=== PATIENT | female | born 1950 | race Asian ===

== ENCOUNTER 2017-10-19 05:48 | Day surgery (SDC) | payer MEDICARE, OTHER ==
[~2017-10-19] VITALS: Ht 154.9 cm; Wt 94.5 kg
[~2017-10-19 05:48] MED LIST: ALEN70TA48 PO; APIX5TAB PO; ASCO500 PO; ATOR20TA86 PO; CARV6 PO; CETI-290 PO; DICL2100G TP; DICL4100G TP; FLUO2515O TP; METF500T6 PO; MV W1TAB PO; NITR.4 SL; PREG100C PO; PREG50 PO; RINGERS SOLUTION,LACTATED 1,000 ML IV ONE; TRIA1KIT13 TP; UMEC1DIS; UMEC1DIS BU; VALS160T2 PO; VITA1CAP PO; VITAD1000 PO; [UNRECOGNIZED DRUG - CODE] TP
[2017-10-19] MEDS ORDERED: MIDAZOLAM HCL 2 MG/2 ML VIAL IVP ONE (05:49)
[2017-10-19] MEDS ORDERED: FentaNYL CITRATE-PF 100 MCG/2 ML VIAL IVP ONE (05:49)
[2017-10-19] MEDS ORDERED: PROPOFOL 1% 20 ML VIAL IVP ONE (05:49)
[2017-10-19] MEDS ORDERED: RINGERS SOLUTION,LACTATED 1,000 ML IV ONE (06:00)
[2017-10-19 06:33] LABS: PROTHROMBIN TIME 10.6 SEC (9.4-11.6)
[2017-10-19] MEDS ORDERED: LIDOCAINE HCL/PF 1% 30 ML VIAL ONE (06:33)
[2017-10-19] MEDS ORDERED: BUPIVACAINE HCL/PF 0.5% 30 ML VIAL ONE (06:33)
[2017-10-19] MEDS ORDERED: POVIDONE-IODINE 10% 15 ML SOLUTION UD ONE (07:12)
[2017-10-19] MEDS ORDERED: GELATIN SPONGE,ABSORBABLE 50 MM TP ONE (07:13)
[2017-10-19] MEDS ORDERED: THROMBIN, BOVINE 20000 UNITS/VIAL POWDER TP ONE (07:13)
[2017-10-19] MEDS ORDERED: RINGERS SOLUTION,LACTATED 500 ML IV ONE (07:56)
[2017-10-19] MEDS ORDERED: TraMADol HCL 50 MG TABLET PO PRN (08:00)
[2017-10-19] MEDS ORDERED: MEPERIDINE HCL/PF 25 MG/0.5 ML AMP IVP PRN (08:30)
[2017-10-19] MEDS ORDERED: HYDROmorphone 2 MG/ML SYRINGE IVP PRN (08:30)
[2017-10-19] MEDS ORDERED: OXYGEN THERAPY IH SCH (08:30)
[2017-10-19] MEDS ORDERED: FentaNYL CITRATE-PF 100 MCG/2 ML VIAL IVP PRN (08:30)
[2017-10-19 08:52] LABS: BASOPHILS % (AUTO) 1.9 % (0.0-2.0); EOSINOPHILS % (AUTO) 3.7 % (1.0-6.0); HEMATOCRIT 42.6 % (36-46); HEMOGLOBIN 14.2 g/dL (12.0-16.0); LYMPHOCYTES # (AUTO) 1.3 K/uL (1.0-4.8); LYMPHOCYTES % (AUTO) 29.9 % (22.0-44.0); MEAN CORPUSCULAR HEMOGLOBIN 27.5 pg (26.0-34.0); MEAN CORPUSCULAR HGB CONC 33.4 G/dL (31.0-37.0); MEAN CORPUSCULAR VOLUME 82 fL (80-100); MONOCYTES # (AUTO) 0.4 K/uL (0.1-1.0); MONOCYTES % (AUTO) 9.5 % (2.0-9.0); NEUTROPHILS # (AUTO) 2.4 K/uL (1.8-7.7); PLATELET COUNT (AUTO) 208 K/uL (150-450); RED BLOOD CELL COUNT(AUTO) 5.17 MIL/uL (4.00-5.20); RED CELL DISTRIBUTION WIDTH 15.9 % (11.5-14.5)
[2017-10-19 09:29] LABS: CALCIUM, TOTAL 8.9 mg/dL (8.8-10.5); CREATININE 0.93 mg/dL (0.60-1.30); POTASSIUM 4.3 mmol/L (3.5-5.1)
== END 2017-10-19 09:10 | disposition home or self-care (01) ==
LOC: SURGERY 05:48
PROVIDERS: ATTEND Podiatrist Foot & Ankle Surgery
DX: M79.89 Other specified soft tissue disorders (principal); E11.9 Type 2 diabetes mellitus without complications; I48.91 Unspecified atrial fibrillation; E78.5 Hyperlipidemia, unspecified; E66.9 Obesity, unspecified; I25.10 Atherosclerotic heart disease of native coronary artery without angina pectoris; E78.00 Pure hypercholesterolemia, unspecified; M19.90 Unspecified osteoarthritis, unspecified site; I11.9 Hypertensive heart disease without heart failure; Z79.01 Long term (current) use of anticoagulants; Z96.652 Presence of left artificial knee joint; Z86.73 Personal history of transient ischemic attack (TIA), and cerebral infarction without residual deficits; Z79.84 Long term (current) use of oral hypoglycemic drugs; Z79.1 Long term (current) use of non-steroidal anti-inflammatories (NSAID); Z68.39 Body mass index [BMI] 39.0-39.9, adult; Z98.42 Cataract extraction status, left eye; Z79.899 Other long term (current) drug therapy; Z98.890 Other specified postprocedural states
CPT/HCPCS: 28039; 36415; 80048; 85025; 85610; 85730; 88304; 88313; 88342; 93005; J0690; J2250; J2704; J3010; J3490 ×2; J7120 ×2; 88341